=== PATIENT | female | born 1975 | race African-American/Black ===

== ENCOUNTER 2017-04-10 16:11 | Emergency (ER) | payer OTHER ==
[~2017-04-10] VITALS: Ht 172.7 cm; Wt 89.2 kg
[~2017-04-10 16:11] MED LIST: NORCO 5/3251 TABLET PO; PERCOCET 5/31 TABLET PO
[2017-04-10] MEDS ORDERED: FLUCONAZOLE150 MG PO (19:13)
[2017-04-10 19:43] VITALS: BP 121/73
== END 2017-04-10 19:46 | disposition home or self-care (01) ==
LOC: EME 16:11
DX: L65.9 Nonscarring hair loss, unspecified (principal); Z79.3 Long term (current) use of hormonal contraceptives; Z87.891 Personal history of nicotine dependence; Z88.0 Allergy status to penicillin
CPT/HCPCS: 84443; 99281; 99283